=== PATIENT | female | born 1945 | race Caucasian/White ===

== ENCOUNTER → 2019-10-04 13:20 | Outpatient (CLI) | payer MEDICARE, OTHER, SELFPAY ==
--- NOTE | 2019-10-04 | DI.ECHO.S_ITS ---
[facility] +---------+ : : [address] : [place] : : : : [id number] : : : : Phone: [phone] +---------+ Echocardiogram Report + + :Name: DONALD WALLACE Study Date: 10/04/2019 Height: 24 in : :[facility] Weight: 120 lb : : Gender: Female BSA: 0.77 m2 : :: 1945 Age: 74 yrs BP: 132/80 mmHg: :Reason For Study: SOB : :Ordering Physician: Zainab : : Performed By: Elena Page : + + Interpretation Summary The left ventricle is normal in size and wall thickness. The ejection fraction is estimated to be 60-65%. There are no focal wall motion abnormalities. Diastolic parameters suggest a relaxation abnormality of the left ventricle, consistent with probable normal filling pressures. The right ventricle is normal in size and function. The right ventricular systolic pressure is estimated to be at least 21 mmHg based on an estimated right atrial pressure of 3 mm Hg. Both atria are severely dilated. There is no significant valvular heart disease. The ascending aorta is mildly enlarged. There is a trivial pericardial effusion noted. Procedure: A two-dimensional transthoracic echocardiogram with color flow and Doppler was performed. The study quality was technically adequate. Most of the acoustic windows were suboptimal, but the best imaging was obtained from the subcostal window. The patient was in normal sinus rhythm during the exam. Left Ventricle: The left ventricle is normal in size and wall thickness. The ejection fraction is estimated to be 60-65%. There are no focal wall motion abnormalities. Diastolic parameters suggest a relaxation abnormality of the left ventricle, consistent with probable normal filling pressures. Right Ventricle: The right ventricle is normal in size and function. Atria: Both atria are severely dilated. There is no Doppler evidence for an interatrial shunt. Mitral Valve: The mitral valve leaflets appear mildly thickened, but open well. There is trace mitral regurgitation. Aortic Valve: The aortic valve is trileaflet. The aortic valve opens well. The aortic valve is mildly calcified. There is trace aortic regurgitation. Tricuspid Valve: The tricuspid valve is normal in structure but is abnormal in function. There is trace tricuspid regurgitation. The right ventricular systolic pressure is estimated to be at least 21 mmHg based on an estimated right atrial pressure of 3 mm Hg. Pulmonic Valve: The pulmonic valve is not well visualized. There is trace pulmonic regurgitation. There is no significant valvular heart disease. Great Vessels: The aortic root is normal size. The ascending aorta is mildly enlarged. The pulmonary artery is not well visualized, but is probably normal size. The IVC is of normal diameter and collapses greater than 50% with a sniff. This suggests a low right atrial pressure of 3 mm Hg. Pericardium/ Pleura There is a trivial pericardial effusion noted. There is no pleural effusion. MMode/2D Measurements & Calculations LVIDd: 4.1 cm LVOT diam: 2.1 cm LVIDs: 1.7 cm Ao root diam: 3.3 cm FS: 57.8 % asc Aorta Diam: 3.5 cm IVSd: 0.69 cm LVPWd: 0.77 cm LV lamas. diameter/BSA (cm/m^2): 5.3 LV sys. diameter/BSA (cm/m^2): 2.3 LA A2 area: 19.5 cm2 RA long axis: 4.9 cm LA A4 area: 17.4 cm2 RA area: 15.8 cm2 LA length (vol): 5.4 cm RA vol: 43.2 ml LA vol: 53.0 ml RA : 55.9 ml/m2 LA vol index: 68.5 ml/m2 RVD1 (basal): 3.6 cm TAPSE: 2.1 cm Doppler Measurements & Calculations Ao V2 max: 158.4 cm/sec LVOT Max Jabier: 107.7 cm/sec Ao V2 mean: 106.1 cm/sec LV V1 max P.6 mmHg Ao max P.0 mmHg LV V1 VTI: 22.6 cm Ao mean P.0 mmHg HARPER(I,D): 2.4 cm2 Ao V2 VTI: 32.7 cm HARPER(V,D): 2.3 cm2 sev ratio: 0.69 HARPER indexed to BSA (cm^2/m^2): 3.1 MV E max jabier: 48.7 cm/sec TR max jabier: 214.7 cm/sec MV A max jabier: 73.9 cm/sec TR max P.4 mmHg MV E/A: 0.66 PA V2 max: 76.5 cm/sec Med Peak E' Jabier: 5.9 cm/sec PA V2 mean: 43.4 cm/sec E/E' med: 8.2 PA mean P.88 mmHg Lat Peak E' Jabier: 7.1 cm/sec PA Accel Time: 0.12 sec E/E' lat: 6.9 E/e' average: 7.5 MV dec time: 0.27 sec SV(LVOT): 77.7 ml Reading Physician:05:01 PM
== END ==
PROVIDERS: PCP Family Medicine; Referring Provider Family Medicine; Visit Provider Family Medicine
DX: R06.02 Shortness of breath (principal); I77.89 Other specified disorders of arteries and arterioles
CPT/HCPCS: 93017; 93306